=== PATIENT | female | born 2000 | race American Indian/Alaskan Native ===

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

== ENCOUNTER 2018-02-18 03:47 | Emergency (ER) | payer OTHER ==
[2018-02-18 03:53] VITALS: BP 132/48
[2018-02-18] MEDS ORDERED: NORCO 5/325 PO STA (04:10)
--- NOTE | 2018-02-18 04:14 | Emergency Department Report ---
ED ENT HPI - General Chief complaint: Dental/Oral Stated complaint: TOOTHACHE WITH NERVE PAIN Time Seen by Provider: 02/18/18 04:09 Source: patient Mode of arrival: Ambulatory Limitations: No Limitations - History of Present Illness Initial comments: 17-year-old obese -Monegas[place] female to emergency Department complaining a 1+ month history of recurrent dental pain not responding to her ibuprofen. Pain has been sharp and throbbing to the upper dentition at tooth #12. Also tooth #16 as sometimes radiate to the lower border. No short shortness of breath or odontophagia/dysphagia. Normal speech. There is no drooling. Neck is nontender as well. MD complaint: tooth pain -: Gradual, Sudden Location: tooth # Severity: mild Quality: dull Consistency: constant Improves with: none Worsens with: none Context- Dental: history of dental caries Associated Symptoms: denies: fever, cough, gum swelling, tinnitus, discharge from ear, rhinorrhea - Related Data Previous Rx's Medication Instructions Recorded Last Taken Type metroNIDAZOLE [Flagyl TAB] 500 mg PO Q12HR #14 tab 08/12/16 Unknown Rx Chlorhexidine Mouthwash [Peridex] 15 ml MM BID #1 bottle 02/18/18 Unknown Rx Lidocaine Viscous 2% 5 ml MM Q3H PRN #120 udc 02/18/18 Unknown Rx traMADol [Ultram] 50 mg PO Q6HR PRN #20 tablet 02/18/18 Unknown Rx Allergies Allergy/AdvReac Type Severity Reaction Status Date / Time Penicillins Allergy Hives Verified 08/12/16 13:26 ED Dental HPI - General Chief complaint: Dental/Oral Stated complaint: TOOTHACHE WITH NERVE PAIN Time Seen by Provider: 02/18/18 04:09 Source: patient Mode of arrival: Ambulatory Limitations: No Limitations - Related Data Previous Rx's Medication Instructions Recorded Last Taken Type metroNIDAZOLE [Flagyl TAB] 500 mg PO Q12HR #14 tab 08/12/16 Unknown Rx Chlorhexidine Mouthwash [Peridex] 15 ml MM BID #1 bottle 02/18/18 Unknown Rx Lidocaine Viscous 2% 5 ml MM Q3H PRN #120 udc 02/18/18 Unknown Rx traMADol [Ultram] 50 mg PO Q6HR PRN #20 tablet 02/18/18 Unknown Rx Allergies Allergy/AdvReac Type Severity Reaction Status Date / Time Penicillins Allergy Hives Verified 08/12/16 13:26 ED Review of Systems ROS: Stated complaint: TOOTHACHE WITH NERVE PAIN Other details as noted in HPI Constitutional: denies: chills, fever Eyes: denies: eye pain, eye discharge, vision change ENT: dental pain. denies: ear pain, throat pain, congestion Respiratory: denies: cough, shortness of breath, wheezing Cardiovascular: denies: chest pain, palpitations Endocrine: no symptoms reported. denies: flushing, increased thirst, increased urine, unexplained weight gain Gastrointestinal: denies: abdominal pain, nausea, diarrhea Genitourinary: denies: urgency, dysuria, discharge Musculoskeletal: denies: back pain, joint swelling, arthralgia Skin: denies: rash, lesions, change in hair/nails Neurological: denies: headache, weakness, paresthesias Psychiatric: denies: anxiety, depression Hematological/Lymphatic: denies: easy bleeding, easy bruising ED Past Medical Hx - Past Medical History Previous Medical History?: No - Surgical History Past Surgical History?: Yes Additional Surgical History: TONSILLECTOMY - Social History Smoking Status: Current Every Day Smoker Substance Use Type: Alcohol, Marijuana - Medications Home Medications: Home Medications Medication Instructions Recorded Confirmed Last Taken Type metroNIDAZOLE [Flagyl TAB] 500 mg PO Q12HR #14 tab 08/12/16 Unknown Rx Chlorhexidine Mouthwash [Peridex] 15 ml MM BID #1 bottle 02/18/18 Unknown Rx Lidocaine Viscous 2% 5 ml MM Q3H PRN #120 udc 02/18/18 Unknown Rx traMADol [Ultram] 50 mg PO Q6HR PRN #20 tablet 02/18/18 Unknown Rx ED Physical Exam - General Limitations: No Limitations General appearance: alert, in no apparent distress - Head Head exam: Present: atraumatic, normocephalic - Eye Eye exam: Present: normal appearance, PERRL, EOMI Pupils: Present: normal accommodation - ENT ENT exam: Present: normal exam, mucous membranes moist, TM's normal bilaterally, other (dental pain at tooth #2 tooth 1516 also some discomfort at tooth #32. Tongue and uvula are midline. No exudate. Normal Alexandro's a Stensen's duct.) - Neck Neck exam: Present: normal inspection, full ROM. Absent: tenderness, lymphadenopathy, thyromegaly - Respiratory Respiratory exam: Present: normal lung sounds bilaterally. Absent: respiratory distress, wheezes, rales, rhonchi, chest wall tenderness, accessory muscle use, decreased breath sounds - Cardiovascular Cardiovascular Exam: Present: regular rate, normal rhythm. Absent: bradycardia, tachycardia, systolic murmur, diastolic murmur, rubs, gallop - GI/Abdominal GI/Abdominal exam: Present: soft, normal bowel sounds. Absent: distended, tenderness, hyperactive bowel sounds, hypoactive bowel sounds, organomegaly, mass, bruit, pulsatile mass - Extremities Exam Extremities exam: Present: normal inspection, full ROM, normal capillary refill - Back Exam Back exam: Present: normal inspection. Absent: CVA tenderness (R), CVA tenderness (L) - Neurological Exam Neurological exam: Present: alert, oriented X3, CN II-XII intact, normal gait - Psychiatric Psychiatric exam: Present: normal affect, normal mood - Skin Skin exam: Present: warm, dry, intact, normal color. Absent: rash ED Course Vital Signs 02/18/18 03:52 Temperature 98.0 F Pulse Rate 60 Respiratory 18 Rate Blood Pressure 132/48 O2 Sat by Pulse 100 Oximetry Critical care attestation.: If time is entered above; I have spent that time in minutes in the direct care of this critically ill patient, excluding procedure time. ED Disposition Clinical Impression: Dentalgia Disposition: -01 TO HOME OR SELFCARE Is pt being admited?: No Does the pt Need Aspirin: No Condition: Stable Instructions: Dental Caries (ED), Toothache (ED), Dental Abscess (ED) Referrals: [facility] [Outside] - 3-5 Days
== END 2018-02-18 04:35 | disposition home or self-care (01) ==
LOC: ED 03:47
DX: K08.89 Other specified disorders of teeth and supporting structures (principal); F17.200 Nicotine dependence, unspecified, uncomplicated; F12.10 Cannabis abuse, uncomplicated; Z90.89 Acquired absence of other organs; Z88.0 Allergy status to penicillin
CPT/HCPCS: 99282

== ENCOUNTER 2018-04-04 17:18 | Emergency (ER) | payer OTHER ==
--- NOTE | 2018-04-04 17:30 | Emergency Department Report ---
Blank Doc - Documentation Documentation: This is a 17-year-old female that is 10 weeks presents to the ED c/o pelvic pain and vaginal bleeding. Denies any other complaints or symptoms. This initial assessment diagnostic orders/clinical plan/treatment(s) is/are subject to change based on patient's health status, clinical progression and re- assessment by fellow clinical providers in the ED. Further treatment and workup at subsequent clinical providers discretion. Patient/guardians urged not to elope from ED s their condition may be serious if not clinically assessed and managed. Initial orders include: 1-Patient sent to [facility] for further evaluation and treatment 2- UA 3- Labs 4- US OB
[2018-04-04 18:03] LABS: Basophils % (Auto) 0.6 % (0.0-1.8); Eosinophils # (Auto) 0.1 K/mm3 (0.0-0.4); Eosinophils % (Auto) 1.7 % (0.0-4.3); Hematocrit 36.3 % (30.3-42.9); Hemoglobin 12.7 gm/dl (10.1-14.3); Lymphocytes # (Auto) 2.5 K/mm3 (1.2-5.4); Lymphocytes % (Auto) 34.7 % (13.4-35.0); Mean Corpuscular HGB Conc 35 % (30-34); Mean Corpuscular Volume 88 fl (79-97); Monocytes # (Auto) 0.8 K/mm3 (0.0-0.8); Monocytes % (Auto) 11.4 % (0.0-7.3); Platelet Count 308 K/mm3 (140-440); Red Blood Count 4.12 M/mm3 (3.65-5.03); Red Cell Distribution Width 14.3 % (13.2-15.2)
[2018-04-04 18:12] LABS: Bilirubin,Urine NEG (Negative); Blood,Urine LG (Negative); Color,Urine Yellow (Yellow); Mucus,Urine 3+ /HPF
[2018-04-04 19:56] VITALS: BP 117/71
--- NOTE | 2018-04-04 21:17 | Emergency Department Report ---
ED Female HPI - General Chief complaint: Vaginal Bleeding Stated complaint: 10WKS PREG/CRAMPING/TOOTHACHE/SHOULDER PAIN Time Seen by Provider: 04/04/18 17:23 Source: patient Mode of arrival: Ambulatory Limitations: No Limitations - History of Present Illness Initial comments: Patient is a 17-year-old [place] female who is presenting with some lower abdominal cramping and spotting since yesterday. Patient states she is approximately 10 weeks by dates. Patient took a home test was not seen a physician as of yet. Patient states that the spotting started last night has continued throughout the day. The patient denies any dysuria or fevers chills nausea vomiting at this time. - Related Data Previous Rx's Medication Instructions Recorded Last Taken Type metroNIDAZOLE [Flagyl TAB] 500 mg PO Q12HR #14 tab 08/12/16 Unknown Rx Chlorhexidine Mouthwash [Peridex] 15 ml MM BID #1 bottle 02/18/18 Unknown Rx Lidocaine Viscous 2% 5 ml MM Q3H PRN #120 udc 02/18/18 Unknown Rx traMADol [Ultram] 50 mg PO Q6HR PRN #20 tablet 02/18/18 Unknown Rx Allergies Allergy/AdvReac Type Severity Reaction Status Date / Time Penicillins Allergy Hives Verified 08/12/16 13:26 ED Review of Systems ROS: Stated complaint: 10WKS PREG/CRAMPING/TOOTHACHE/SHOULDER PAIN Other details as noted in HPI Comment: All other systems reviewed and negative ED Past Medical Hx - Past Medical History Previous Medical History?: No - Surgical History Past Surgical History?: Yes Additional Surgical History: TONSILLECTOMY - Social History Smoking Status: Never Smoker Substance Use Type: None - Medications Home Medications: Home Medications Medication Instructions Recorded Confirmed Last Taken Type metroNIDAZOLE [Flagyl TAB] 500 mg PO Q12HR #14 tab 08/12/16 Unknown Rx Chlorhexidine Mouthwash [Peridex] 15 ml MM BID #1 bottle 02/18/18 Unknown Rx Lidocaine Viscous 2% 5 ml MM Q3H PRN #120 udc 02/18/18 Unknown Rx traMADol [Ultram] 50 mg PO Q6HR PRN #20 tablet 02/18/18 Unknown Rx ED Physical Exam - General Limitations: No Limitations General appearance: alert, in no apparent distress - Head Head exam: Present: atraumatic, normocephalic - Eye Eye exam: Present: normal appearance - ENT ENT exam: Present: mucous membranes moist - Neck Neck exam: Present: normal inspection - Respiratory Respiratory exam: Present: normal lung sounds bilaterally. Absent: respiratory distress, wheezes, rales, rhonchi - Cardiovascular Cardiovascular Exam: Present: regular rate, normal rhythm. Absent: systolic murmur, diastolic murmur, rubs, gallop - GI/Abdominal GI/Abdominal exam: Present: soft, normal bowel sounds. Absent: distended, tenderness, guarding, rebound - Extremities Exam Extremities exam: Present: normal inspection - Back Exam Back exam: Present: normal inspection - Neurological Exam Neurological exam: Present: alert, oriented X3 - Psychiatric Psychiatric exam: Present: normal affect, normal mood - Skin Skin exam: Present: warm, dry, intact, normal color. Absent: rash ED Course Vital Signs 04/04/18 04/04/18 17:30 19:55 Temperature 98.8 F Pulse Rate 68 73 Respiratory 18 16 Rate Blood Pressure 132/59 Blood Pressure 117/71 [Left] O2 Sat by Pulse 100 100 Oximetry ED Medical Decision Making - Lab Data Result diagrams: 04/04/18 17:49 Lab Results 04/04/18 04/04/18 04/04/18 Range/Units 17:45 17:49 17:49 WBC 7.2 (4.5-11.0) K/mm3 RBC 4.12 (3.65-5.03) M/mm3 Hgb 12.7 (10.1-14.3) gm/dl Hct 36.3 (30.3-42.9) % MCV 88 (79-97) fl MCH 31 (28-32) pg MCHC 35 H (30-34) % RDW 14.3 (13.2-15.2) % Plt Count 308 (140-440) K/mm3 Lymph % (Auto) 34.7 (13.4-35.0) % Major % (Auto) 11.4 H (0.0-7.3) % Eos % (Auto) 1.7 (0.0-4.3) % Baso % (Auto) 0.6 (0.0-1.8) % Lymph # 2.5 (1.2-5.4) K/mm3 Major # 0.8 (0.0-0.8) K/mm3 Eos # 0.1 (0.0-0.4) K/mm3 Baso # 0.0 (0.0-0.1) K/mm3 Seg Neutrophils % 51.6 (40.0-70.0) % Seg Neutrophils # 3.7 (1.8-7.7) K/mm3 HCG, Quant < 2 (0-4) mIU/mL Urine Color Yellow (Yellow) Urine Turbidity Slightly-cloudy (Clear) Urine pH 6.0 (5.0-7.0) Ur Specific [place] 1.032 H (1.003-1.030) Urine Protein 30 mg/dl (Negative) mg/dL Urine Glucose (UA) Neg (Negative) mg/dL Urine Ketones Neg (Negative) mg/dL Urine Blood Lg (Negative) Urine Nitrite Neg (Negative) Urine Bilirubin Neg (Negative) Urine Urobilinogen 2.0 (<2.0) mg/dL Ur Leukocyte Esterase Sm (Negative) Urine WBC (Auto) 27.0 H (0.0-6.0) /HPF Urine RBC (Auto) 53.0 (0.0-6.0) /HPF U Epithel Cells (Auto) 19.0 H (0-13.0) /HPF Urine Mucus 3+ /HPF Blood Type Antibody Screen 04/04/18 Range/Units 17:53 WBC (4.5-11.0) K/mm3 RBC (3.65-5.03) M/mm3 Hgb (10.1-14.3) gm/dl Hct (30.3-42.9) % MCV (79-97) fl MCH (28-32) pg MCHC (30-34) % RDW (13.2-15.2) % Plt Count (140-440) K/mm3 Lymph % (Auto) (13.4-35.0) % Major % (Auto) (0.0-7.3) % Eos % (Auto) (0.0-4.3) % Baso % (Auto) (0.0-1.8) % Lymph # (1.2-5.4) K/mm3 Major # (0.0-0.8) K/mm3 Eos # (0.0-0.4) K/mm3 Baso # (0.0-0.1) K/mm3 Seg Neutrophils % (40.0-70.0) % Seg Neutrophils # (1.8-7.7) K/mm3 HCG, Quant (0-4) mIU/mL Urine Color (Yellow) Urine Turbidity (Clear) Urine pH (5.0-7.0) Ur Specific [place] (1.003-1.030) Urine Protein (Negative) mg/dL Urine Glucose (UA) (Negative) mg/dL Urine Ketones (Negative) mg/dL Urine Blood (Negative) Urine Nitrite (Negative) Urine Bilirubin (Negative) Urine Urobilinogen (<2.0) mg/dL Ur Leukocyte Esterase (Negative) Urine WBC (Auto) (0.0-6.0) /HPF Urine RBC (Auto) (0.0-6.0) /HPF U Epithel Cells (Auto) (0-13.0) /HPF Urine Mucus /HPF Blood Type A POSITIVE Antibody Screen Negative - Radiology Data interpreted by me: Ultrasound shows no IUP. There is no products of conception. - Medical Decision Making Patient likely is a missed . Spotting likely as her body resetting to have a menses. Patient discharged home. Critical care attestation.: If time is entered above; I have spent that time in minutes in the direct care of this critically ill patient, excluding procedure time. ED Disposition Clinical Impression: Missed Disposition: DC-01 TO HOME OR SELFCARE Is pt being admited?: No Does the pt Need Aspirin: No Condition: Stable Referrals: JENNIFER ZAPATA MD [Primary Care Provider] - 3-5 Days Time of Disposition: 21:17
--- NOTE | 2018-04-05 11:21 | Ultrasound Report ---
FINAL REPORT EXAM: US TRANSVAGINAL HISTORY: 10 weeks by dates, neg preg now bleeding COMPARISON: None. TECHNIQUE: Transvaginal imaging of the pelvis was performed. FINDINGS: The uterus measures 8 x 3.1 x 3.8 centimeters and is anteverted. There is normal echogenicity of the uterine myometrium. The endometrium measures 3.5 millimeters in thickness and is normal in morphology. The right ovary measures 3.8 x 1.9 x 3.3 centimeters. There are several simple appearing follicles. T here is normal flow to the right ovary on color Doppler imaging. The left ovary measures 3.9 x 2.5 x 3.1 centimeters. There are several simple appearing follicles. Th ere is normal flow to the left ovary on color Doppler imaging. IMPRESSION: Normal pelvic ultrasound.
== END 2018-04-04 21:26 | disposition home or self-care (01) ==
LOC: ED 17:18
DX: O02.1 Missed abortion (principal); Z88.0 Allergy status to penicillin; Z90.89 Acquired absence of other organs; Z3A.10 10 weeks gestation of pregnancy
CPT/HCPCS: 36415; 76830; 81001; 84702; 85025; 86850; 86900; 86901

== ENCOUNTER 2018-11-25 18:18 | Emergency (ER) | payer SELFPAY ==
--- NOTE | 2018-11-25 18:30 | Event Note ---
ED Screening Note Date of service: 11/25/18 Time: 18:28 ED Screening Note: c/o vaginal irritation and diffuse back pain x 6 days. Currently on menstrual cycle. +dysuria. PT states unsure of vaginal discharge. States mild lower abdominal cramping intermittently This initial assessment/diagnostic orders/clinical plan/treatment(s) is/are subject to change based on patients health status, clinical progression and re- assessment by fellow clinical providers in the ED. Further treatment and workup at subsequent clinical providers discretion. Patient/guardian urged not to elope from the ED as their condition may be serious if not clinically assessed and managed. Initial orders include: UA
--- NOTE | 2018-11-25 22:04 | Emergency Department Report ---
ED Female HPI - General Chief complaint: Vaginal Bleeding Stated complaint: VAGINAL IRRITATION/BACK PAIN Time Seen by Provider: 11/25/18 22:00 Source: patient Mode of arrival: Ambulatory Limitations: No Limitations - History of Present Illness Initial comments: Patient is a 17-year-old female that presents emergency room with complaints of vaginal irritation and vaginal discharge. Patient states that her symptoms started 2 days ago. Patient states she believe she has an STD. Patient states that the last male Kristin's with has a penile discharge. Patient states it is a white thick discharge. Patient states that the labia is irritated. Patient denies abdominal pain. Patient states she's having some mild back pain. Patient states the back pain is a 2 out of 10. Patient states the pain is unchanged by rest or movement. She denies fever and chills. Patient denies dysuria. 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 denies: vaginal bleeding, abdominal pain, nausea/vomiting, fever/chills, headaches, loss of appetite, dysuria, hematuria, rash, seizure, shortness of breath, syncope, weakness - Related Data Sexually active: Yes Previous Rx's Medication Instructions Recorded Last Taken Type Chlorhexidine Mouthwash [Peridex] 15 ml MM BID #1 bottle 02/18/18 Unknown Rx Lidocaine Viscous 2% 5 ml MM Q3H PRN #120 udc 02/18/18 Unknown Rx traMADol [Ultram] 50 mg PO Q6HR PRN #20 tablet 02/18/18 Unknown Rx Azithromycin [Zithromax TAB] 2 tab PO QDAY #2 tablet 11/26/18 Unknown Rx metroNIDAZOLE [Flagyl TAB] 500 mg PO Q12HR #14 tab 11/26/18 Unknown Rx Allergies Allergy/AdvReac Type Severity Reaction Status Date / Time Penicillins Allergy Hives Verified 11/25/18 18:25 ED Review of Systems ROS: Stated complaint: VAGINAL IRRITATION/BACK PAIN Other details as noted in HPI Constitutional: denies: chills, fever Eyes: denies: eye pain, eye discharge, vision change ENT: denies: ear pain, throat pain Respiratory: denies: cough, shortness of breath, wheezing Cardiovascular: denies: chest pain, palpitations Endocrine: no symptoms reported Gastrointestinal: denies: abdominal pain, nausea, diarrhea Genitourinary: discharge. denies: urgency, dysuria Musculoskeletal: back pain. denies: joint swelling, arthralgia Skin: denies: rash, lesions Neurological: denies: headache, weakness, paresthesias Psychiatric: denies: anxiety, depression Hematological/Lymphatic: denies: easy bleeding, easy bruising ED Past Medical Hx - Past Medical History Previous Medical History?: No - Surgical History Past Surgical History?: Yes Additional Surgical History: TONSILLECTOMY - Family History Family history: no significant - Social History Smoking Status: Never Smoker Substance Use Type: Marijuana - Medications Home Medications: Home Medications Medication Instructions Recorded Confirmed Last Taken Type Chlorhexidine Mouthwash [Peridex] 15 ml MM BID #1 bottle 02/18/18 Unknown Rx Lidocaine Viscous 2% 5 ml MM Q3H PRN #120 udc 02/18/18 Unknown Rx traMADol [Ultram] 50 mg PO Q6HR PRN #20 tablet 02/18/18 Unknown Rx Azithromycin [Zithromax TAB] 2 tab PO QDAY #2 tablet 11/26/18 Unknown Rx metroNIDAZOLE [Flagyl TAB] 500 mg PO Q12HR #14 tab 11/26/18 Unknown Rx ED Physical Exam - General Limitations: No Limitations General appearance: alert, in no apparent distress - Head Head exam: Present: atraumatic, normocephalic - Eye Eye exam: Present: normal appearance - ENT ENT exam: Present: mucous membranes moist - Neck Neck exam: Present: normal inspection - Respiratory Respiratory exam: Present: normal lung sounds bilaterally. Absent: respiratory distress - Cardiovascular Cardiovascular Exam: Present: regular rate, normal rhythm. Absent: systolic murmur, diastolic murmur, rubs, gallop - GI/Abdominal GI/Abdominal exam: Present: soft, normal bowel sounds. Absent: distended, tenderness, guarding - Rectal Rectal exam: Present: deferred - External exam: Present: normal external exam Speculum exam: Present: erythema, vaginal discharge, cervical discharge. Absent: vaginal bleeding, foreign body, tissue, laceration Bi-manual exam: Present: normal bi-manual exam. Absent: cervical motion tendernes, adnexal tenderness, adnexal mass, uterine enlargement, uterine tenderness - Extremities Exam Extremities exam: Present: normal inspection - Back Exam Back exam: Present: normal inspection - Neurological Exam Neurological exam: Present: alert, oriented X3 - Psychiatric Psychiatric exam: Present: normal affect, normal mood - Skin Skin exam: Present: warm, dry, intact, normal color. Absent: rash ED Course Vital Signs 11/25/18 11/26/18 11/26/18 18:20 00:40 00:45 Temperature 98.6 F 98.3 F Pulse Rate 63 63 Respiratory 16 16 16 Rate Blood Pressure 125/74 Blood Pressure 120/70 [Left] O2 Sat by Pulse 100 100 Oximetry - Reevaluation(s) Reevaluation #1: Pelvic done with nurse Elva in the room. 11/25/18 22:39 Reevaluation #2: I discussed all results with patient. I discussed plan of care with patient. Patient agrees with plan of care. Patient is stable for discharge. Patient will be discharged home. Patient given discharge instructions. Patient voiced understanding of discharge instructions. pt states she's had Rocephin in the past without a problem. 11/26/18 00:11 ED Medical Decision Making - Lab Data Result diagrams: 11/25/18 22:39 - Medical Decision Making pt is a 17-year-old female that presents emergency room with vaginal discharge. Patient's finding consistent with BV and possible gonorrhea or chlamydia. Patient's currently culture pending. Patient wet prep which shows clue cells. Patient stable for discharge. Patient's other labs unremarkable. Patient given Rocephin in the ER. Patient discharged home with Flagyl and Zithromax. - Differential Diagnosis STD exposure. Vaginal discharge. BV. Trichomonas. GC/chlamydia Critical care attestation.: If time is entered above; I have spent that time in minutes in the direct care of this critically ill patient, excluding procedure time. ED Disposition Clinical Impression: Vaginal irritation, Vaginal discharge, Bacterial vaginosis, Possible exposure to STD Disposition: DC-01 TO HOME OR SELFCARE Is pt being admited?: No Does the pt Need Aspirin: No Condition: Stable Instructions: Bacterial Vaginosis (ED), Chlamydia Infection (ED), Sexually Transmitted Diseases (ED), Safe Sex (ED), Trichomoniasis (ED) Additional Instructions: Patient to follow-up with primary care in 2-3 days. 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 Patient to avoid sex until cleared by AUTOMATIC TYPEWRITER INSPECTOR and primary care. Patient to return to ER if condition worsens. Patient to rest. Patient to increase water. Patient to take meds as directed. Patient's take Tylenol or ibuprofen when necessary for pain.. Prescriptions: metroNIDAZOLE [Flagyl TAB] 500 mg PO Q12HR #14 tab Azithromycin [Zithromax TAB] 2 tab PO QDAY #2 tablet Referrals: JENNIFER ZAPATA MD [Referring] - 2-3 Days Forms: STI Treatment and Prevention Time of Disposition: 00:14
[2018-11-25 23:15] LABS: Hematocrit 37.6 % (30.3-42.9); Hemoglobin 12.4 gm/dl (10.1-14.3); Mean Corpuscular HGB Conc 33 % (30-34); Mean Corpuscular Volume 88 fl (79-97); Platelet Count 328 K/mm3 (140-440); Red Blood Count 4.29 M/mm3 (3.65-5.03); Red Cell Distribution Width 15.1 % (13.2-15.2)
[2018-11-26 00:01] LABS: Bacteria,Urine 1+ /HPF (Negative); Bilirubin,Urine NEG (Negative); Blood,Urine NEG (Negative); Color,Urine Yellow (Yellow); Mucus,Urine FEW /HPF; Protein,Urine <15 mg/dL mg/dL (Negative); Urobilinogen,Urine < 2.0 mg/dL (<2.0)
[2018-11-26] MEDS ORDERED: XYLOCAINE 1% MPF 5 mL INFILTRATI ONE (00:14)
[2018-11-26] MEDS ORDERED: ROCEPHIN IM ONE (00:14)
[2018-11-26 01:56] VITALS: BP 120/70
== END 2018-11-26 00:45 | disposition home or self-care (01) ==
LOC: ED 18:18
DX: N76.0 Acute vaginitis (principal); B96.89 Other specified bacterial agents as the cause of diseases classified elsewhere; F12.10 Cannabis abuse, uncomplicated; Z90.89 Acquired absence of other organs; Z88.0 Allergy status to penicillin; Z79.899 Other long term (current) drug therapy
CPT/HCPCS: 36415; 81001; 84703; 85027; 87210; 87591; 96372; 99284; J0696